=== PATIENT | male | born 2005 | race Hispanic/Latino ===

== ENCOUNTER 2023-05-23 18:49 | Emergency (ER) | payer OTHER ==
[2023-05-23] MEDS ORDERED: Boostrix 0.5 ML (Tdap) VIAL (>/=7 yrs of age) ONE (20:00)
== END 2023-05-23 20:24 | disposition home or self-care (01) ==
LOC: CSHERS 18:49
DX: S41.112A Laceration without foreign body of left upper arm, initial encounter (principal); Z23 Encounter for immunization; X58.XXXA Exposure to other specified factors, initial encounter
CPT/HCPCS: 90471; 90715